=== PATIENT | male | born 2000 | race American Indian/Alaskan Native ===

== ENCOUNTER 2020-02-19 10:25 | Emergency (ER) | payer SELFPAY ==
[2020-02-19 10:31] VITALS: BP 137/69
--- NOTE | 2020-02-19 11:01 | XRay Report ---
XR ankle 3+V LT INDICATION / CLINICAL INFORMATION: PAIN AND SWELLING. COMPARISON: None available. FINDINGS: No acute fracture. No cortical lysis. Normal osseous mineralization. Normal alignment. Joint spaces are preserved. No destructive osseous lesion or suspicious periosteal reaction. Impression: 1.No significant osseous abnormality. Signer Name: Samuel Nevarez MD Signed: 02/19/2020 10:57 AM Workstation Name: [id number]
--- NOTE | 2020-02-19 12:02 | Emergency Department Report ---
ED Lower Extremity HPI - General Chief Complaint: Extremity Injury, Lower Stated Complaint: LT TWISTED ANKLE Time Seen by Provider: 02/19/20 11:54 Source: patient Mode of arrival: Ambulatory Limitations: No Limitations - History of Present Illness Complaint: ankle injury -: Sudden, days(s) (1) Injury: Ankle: Left Type of Injury: inversion Severity: mild, moderate Improves With: nothing Context: other (missed stepped) Associated Symptoms: swelling, unable to bear weight - Related Data Previous Rx's Medication Instructions Recorded Last Taken Type Ketorolac [Toradol] 10 mg PO Q6H PRN #10 tablet 02/19/20 Unknown Rx Allergies Allergy/AdvReac Type Severity Reaction Status Date / Time No Known Allergies Allergy Unverified 02/19/20 10:28 ED Review of Systems ROS: Stated complaint: LT TWISTED ANKLE Other details as noted in HPI Comment: All other systems reviewed and negative ED Past Medical Hx - Past Medical History Previous Medical History?: No - Surgical History Hx Appendectomy: Yes - Social History Smoking Status: Never Smoker Substance Use Type: None - Medications Home Medications: Home Medications Medication Instructions Recorded Confirmed Last Taken Type Ketorolac [Toradol] 10 mg PO Q6H PRN #10 tablet 02/19/20 Unknown Rx ED Physical Exam - General Limitations: No Limitations General appearance: alert, in no apparent distress - Head Head exam: Present: atraumatic, normocephalic - Eye Eye exam: Present: normal appearance, PERRL Pupils: Present: normal accommodation - ENT ENT exam: Present: normal exam, mucous membranes moist, TM's normal bilaterally - Neck Neck exam: Present: normal inspection, full ROM - Respiratory Respiratory exam: Present: normal lung sounds bilaterally, rales, rhonchi. Absent: respiratory distress - Cardiovascular Cardiovascular Exam: Present: regular rate, normal rhythm. Absent: systolic murmur, diastolic murmur, rubs, gallop - GI/Abdominal GI/Abdominal exam: Present: soft, normal bowel sounds - Rectal Rectal exam: Present: deferred - Extremities Exam Extremities exam: Present: normal inspection, joint swelling (swelling to lateral malleous and 3 inches above lateral malleous. no pain to proximal fibula. ), calf tenderness - Back Exam Back exam: Present: normal inspection. Absent: CVA tenderness (R), CVA tenderness (L) - Neurological Exam Neurological exam: Present: alert, oriented X3, CN II-XII intact, normal gait - Psychiatric Psychiatric exam: Present: normal affect, normal mood - Skin Skin exam: Present: warm, dry, intact, normal color. Absent: rash ED Course Vital Signs 02/19/20 10:31 Temperature 98.1 F Pulse Rate 54 L Respiratory 16 Rate Blood Pressure 137/69 O2 Sat by Pulse 100 Oximetry - Orthopedic Splinting/Casting Injury #1 Side: left Lower Extremity Injury Location: ankle Lower Extremity Immobilizer: stirrup splint Other Orthopedic Equipment: crutches Critical care attestation.: If time is entered above; I have spent that time in minutes in the direct care of this critically ill patient, excluding procedure time. ED Disposition Clinical Impression: Left ankle sprain Disposition: - TO HOME OR SELFCARE Is pt being admited?: No Does the pt Need Aspirin: No Condition: Stable Instructions: How to Use a Stirrup Ankle Brace, [id number], Ankle Sprain, Phase II Rehab-SportsMed, How to Use a Stirrup Ankle Brace, Elastic Bandage and RICE Therapy Prescriptions: Ketorolac [Toradol] 10 mg PO Q6H PRN #10 tablet PRN Reason: Pain Referrals: PRIMARY CAREMD [Primary Care Provider] - 3-5 Days SALOMÓN GRIFFITH MD [Staff Physician] - 3-5 Days
== END 2020-02-19 15:01 | disposition home or self-care (01) ==
LOC: ED 10:25
DX: S93.402A Sprain of unspecified ligament of left ankle, initial encounter (principal); Z90.49 Acquired absence of other specified parts of digestive tract; Z79.899 Other long term (current) drug therapy; X58.XXXA Exposure to other specified factors, initial encounter; Y93.89 Activity, other specified; Y92.89 Other specified places as the place of occurrence of the external cause; Y99.8 Other external cause status

== ENCOUNTER 2021-05-14 12:40 | Emergency (ER) | payer SELFPAY ==
[2021-05-14 13:15] VITALS: BP 153/102
== END 2021-05-14 18:08 | disposition left against medical advice (07) ==
LOC: ED 12:40
DX: R31.9 Hematuria, unspecified (principal); Z53.21 Procedure and treatment not carried out due to patient leaving prior to being seen by health care provider

== ENCOUNTER 2021-06-17 12:23 | Emergency (ER) | payer SELFPAY ==
[2021-06-17 15:12] LABS: Basophils # (Auto) 0.1 K/mm3 (0.0-0.1); Basophils % (Auto) 2.3 % (0.0-1.8); Eosinophils # (Auto) 0.2 K/mm3 (0.0-0.4); Eosinophils % (Auto) 4.3 % (0.0-4.3); Hematocrit 40.9 % (35.5-45.6); Hemoglobin 13.7 gm/dl (11.8-15.2); Lymphocytes # (Auto) 2.4 K/mm3 (1.2-5.4); Lymphocytes % (Auto) 47.5 % (13.4-35.0); Mean Corpuscular HGB Conc 34 % (32-34); Mean Corpuscular Volume 92 fl (84-94); Monocytes # (Auto) 0.5 K/mm3 (0.0-0.8); Monocytes % (Auto) 10.1 % (0.0-7.3); Platelet Count 212 K/mm3 (140-440); Red Blood Count 4.44 M/mm3 (3.65-5.03); Red Cell Distribution Width 12.9 % (13.2-15.2)
[2021-06-17 15:23] LABS: Alanine Aminotransferase 10 units/L (7-56); Albumin 4.4 g/dL (3.9-5); BUN/Creatinine Ratio 10; Blood Urea Nitrogen 11 mg/dL (9-20); Calcium 8.9 mg/dL (8.4-10.2); Hemolysis Index 12
[2021-06-17 16:03] LABS: Bilirubin,Urine NEG (Negative); Blood,Urine NEG (Negative); Color,Urine Yellow (Yellow); Protein,Urine <15 mg/dL mg/dL (Negative); Renal Epithelial Cells,Urine <1 /LPF; Urobilinogen,Urine < 2.0 mg/dL (<2.0)
--- NOTE | 2021-06-17 16:51 | Cat Scan Report ---
CT abdomen pelvis wo con INDICATION: Flank pain, low back pain. COMPARISON: None TECHNIQUE: Abdominal and pelvic CT exam performed. All CT scans at this location are performed using CT dose reduction for ALARA by means of automated exposure control. FINDINGS: CT ABDOMEN and PELVIS: Lung Bases: No significant abnormality. Liver: No significant abnormality. Biliary: No significant abnormality. Spleen: No significant abnormality. Pancreas: No significant abnormality. Adrenals: No significant abnormality. Kidneys: Punctate nonobstructing left midpole stone, image 56 of series 2 Lymphatics: No lymphadenopathy. Vasculature: No significant abnormality. Bowel: No significant abnormality. Appendix is nonvisualized. However, no inflammatory changes in th e right lower quadrant to suggest appendicitis. Pelvis: No significant abnormality. Osseous Structures: No aggressive osseous lesion. Additional Findings: None IMPRESSION: 1. No acute abnormality of the abdomen or pelvis. 2. Punctate nonobstructing left midpole renal stone. Signer Name: Samuel Nevarez MD Signed: 06/17/2021 4:47 PM Workstation Name: [id number]
[2021-06-17] MEDS ORDERED: KETOROLAC 30 MG/1 ML INJ IM ONE (17:18)
[2021-06-17] MEDS ORDERED: TAMSULOSIN 0.4 MG CAP PO ONE (17:18)
--- NOTE | 2021-06-17 18:45 | Emergency Department Report ---
ED General Adult HPI - General Chief complaint: Urogenital-Male Stated complaint: BLOODY URINE Source: patient Mode of arrival: Ambulatory Limitations: No Limitations - History of Present Illness Initial comments: Patient is a 21-year-old -[place] male with no past medical history presents to the ED with complaint of acute onset persistent intermittent hematuria, dysuria, suprapubic pain, bilateral flank pain and low back pain for the last 1 week. Patient states that the pain is persistent and worse this patient in the last 2 days. Patient states that the last time he experienced hematuria was about 8 hours ago. Patient denies penile discharge, testicular pain, fever, chills, dizziness, syncope, urinary frequency and urgency, nausea and vomiting, diarrhea, traumatic injury, headache, chest pain or shortness of breath. MD Complaint: Hematuria, suprapubic pain, flank pain, -: Sudden, week(s) (1) Location: back (Low back), abdomen, genitals Radiation: non-radiation Severity scale (0 -10): 4 Quality: aching, sharp Consistency: intermittent Improves with: none Worsens with: other (Urination) Associated Symptoms: denies other symptoms. denies: confusion, cough, diaphoresis, headaches, malaise, nausea/vomiting, rash, seizure, shortness of breath, syncope, weakness Treatments Prior to Arrival: none - Related Data Previous Rx's Medication Instructions Recorded Last Taken Type Ketorolac [Toradol] 10 mg PO Q6H PRN #10 tablet 02/19/20 Unknown Rx Ciprofloxacin HCl 500 mg PO Q12H #20 tab 06/17/21 Unknown Rx Ketorolac [Toradol] 10 mg PO Q8H PRN #20 tab 06/17/21 Unknown Rx Ondansetron [Zofran Odt] 4 mg PO Q8HR PRN #15 tab.rapdis 06/17/21 Unknown Rx Tamsulosin [Flomax] 0.4 mg PO QDAY #10 cap 06/17/21 Unknown Rx Allergies Allergy/AdvReac Type Severity Reaction Status Date / Time No Known Allergies Allergy Verified 06/17/21 12:34 ED Review of Systems ROS: Stated complaint: BLOODY URINE Other details as noted in HPI Constitutional: denies: chills, fever Eyes: denies: eye pain, eye discharge, vision change ENT: denies: ear pain, throat pain Respiratory: denies: cough, shortness of breath, wheezing Cardiovascular: denies: chest pain, palpitations Endocrine: no symptoms reported Gastrointestinal: abdominal pain (Suprapubic pain and flank pain). denies: nausea, diarrhea Genitourinary: hematuria. denies: urgency, dysuria, frequency, discharge, testicular pain, testicular mass Musculoskeletal: back pain (Low back pain). denies: joint swelling, arthralgia Skin: denies: rash, lesions Neurological: denies: headache, weakness, paresthesias Psychiatric: denies: anxiety, depression Hematological/Lymphatic: denies: easy bleeding, easy bruising ED Past Medical Hx - Past Medical History Previous Medical History?: No - Surgical History Past Surgical History?: No Hx Appendectomy: Yes - Social History Smoking Status: Former Smoker Substance Use Type: None - Medications Home Medications: Home Medications Medication Instructions Recorded Confirmed Last Taken Type Ketorolac [Toradol] 10 mg PO Q6H PRN #10 tablet 02/19/20 Unknown Rx Ciprofloxacin HCl 500 mg PO Q12H #20 tab 06/17/21 Unknown Rx Ketorolac [Toradol] 10 mg PO Q8H PRN #20 tab 06/17/21 Unknown Rx Ondansetron [Zofran Odt] 4 mg PO Q8HR PRN #15 tab.rapdis 06/17/21 Unknown Rx Tamsulosin [Flomax] 0.4 mg PO QDAY #10 cap 06/17/21 Unknown Rx ED Physical Exam - General Limitations: No Limitations General appearance: alert, in no apparent distress - Head Head exam: Present: atraumatic, normocephalic, normal inspection - Eye Eye exam: Present: normal appearance, PERRL, EOMI Pupils: Present: normal accommodation - ENT ENT exam: Present: normal exam, normal orophraynx, mucous membranes moist, TM's normal bilaterally, normal external ear exam - Neck Neck exam: Present: normal inspection, full ROM. Absent: tenderness - Respiratory Respiratory exam: Present: normal lung sounds bilaterally. Absent: respiratory distress, wheezes, rales, rhonchi, stridor, chest wall tenderness, accessory muscle use, decreased breath sounds, prolonged expiratory - Cardiovascular Cardiovascular Exam: Present: regular rate, normal rhythm, normal heart sounds. Absent: systolic murmur, diastolic murmur, rubs, gallop - GI/Abdominal GI/Abdominal exam: Present: soft, normal bowel sounds. Absent: tenderness, guarding, rebound, hyperactive bowel sounds, hypoactive bowel sounds, organomegaly - Extremities Exam Extremities exam: Present: normal inspection, full ROM, normal capillary refill. Absent: tenderness - Back Exam Back exam: Present: normal inspection, full ROM. Absent: tenderness, CVA tenderness (R), CVA tenderness (L), muscle spasm, paraspinal tenderness, vertebral tenderness - Neurological Exam Neurological exam: Present: alert, oriented X3, CN II-XII intact, normal gait, reflexes normal - Psychiatric Psychiatric exam: Present: normal affect, normal mood - Skin Skin exam: Present: warm, dry, intact, normal color. Absent: rash ED Course Vital Signs 06/17/21 12:35 Temperature 97.6 F Pulse Rate 58 L Respiratory 16 Rate Blood Pressure 122/42 [Left] O2 Sat by Pulse 98 Oximetry ED Medical Decision Making - Lab Data Result diagrams: 06/17/21 14:46 06/17/21 14:46 - Radiology Data Radiology results: report reviewed, [place] [address] Cat Scan Report Signed Patient: ROSALIA NUÑEZ MR#: [id number] : 2000 Acct:[id number] Age/Sex: 21 / M ADM Date: 06/17/21 Loc: ED Attending Dr: Ordering Physician: OSKAR COLEMAN Date of Service: 06/17/21 Procedure(s): CT abdomen pelvis wo con Accession Number(s): [id number] cc: OSKAR COLEMAN CT abdomen pelvis wo con INDICATION: Flank pain, low back pain. COMPARISON: None TECHNIQUE: Abdominal and pelvic CT exam performed. All CT scans at this location are performed using CT dose reduction for ALARA by means of automated exposure control. FINDINGS: CT ABDOMEN and PELVIS: Lung Bases: No significant abnormality. Liver: No significant abnormality. Biliary: No significant abnormality. Spleen: No significant abnormality. Pancreas: No significant abnormality. Adrenals: No significant abnormality. Kidneys: Punctate nonobstructing left midpole stone, image 56 of series 2 Lymphatics: No lymphadenopathy. Vasculature: No significant abnormality. Bowel: No significant abnormality. Appendix is nonvisualized. However, no inflammatory changes in the right lower quadrant to suggest appendicitis. Pelvis: No significant abnormality. Osseous Structures: No aggressive osseous lesion. Additional Findings: None IMPRESSION: 1. No acute abnormality of the abdomen or pelvis. 2. Punctate nonobstructing left midpole renal stone. Signer Name: Samuel Nevarez MD Signed: 06/17/2021 4:47 PM Workstation Name: [id number] Transcribed By: GENA Dictated By: Samuel Nevarez MD Electronically Authenticated By: Samuel Nevarez MD Signed Date/Time: 06/17/211646 DD/ 41 TD/TT: - Medical Decision Making This is a 21-year-old -[place] male with no past medical history presents to the ED with complaint of acute onset persistent intermittent hematuria, dysuria, suprapubic pain, bilateral flank pain and low back pain for the last 1 week. Patient states that the pain is persistent and worse this patient in the last 2 days. Patient states that the last time he experienced hematuria was about 8 hours ago. In the ED, patient is alert and oriented x3 and is not in any distress. Lab test results were reviewed and are all nonactionable except for mild urinary tract infection. Abdomen pelvis CT scan without contrast showed no acute abnormality of the abdomen or pelvis except punctate nonobstructing left midpole renal stone. Patient was treated for pain in the ED and discharged home on pain medication and antibiotics as well as Flomax. Patient was advised to follow-up with the urologist Dr. Goerge in 5 to 7 days for reevaluation. Patient was otherwise advised to follow-up with his primary care physician in 7 to 10 days for reevaluation. Patient was also advised return to the ED immediately if symptoms get worse. - Differential Diagnosis Kidney stone; UTI; colitis; STD; muscle spasm; cystitis Critical care attestation.: If time is entered above; I have spent that time in minutes in the direct care of this critically ill patient, excluding procedure time. ED Disposition Clinical Impression: Acute abdominal pain in left flank, Calculus of left kidney, Acute urinary tract infection Hematuria Qualifiers: Hematuria type: unspecified type Qualified Code(s): R31.9 - Hematuria, unspecified Disposition: 01 HOME / SELF CARE / HOMELESS Is pt being admited?: No Does the pt Need Aspirin: No Condition: Stable Instructions: Kidney Stones, [id number], Renal Colic, [id number], Flank Pain, Adult, [id number], Urinary Tract Infection, Adult, [id number] Additional Instructions: All lab test results are reviewed and are all nonactionable except for urinary tract infection in the urinalysis. The abdomen pelvis CT scan without contrast showed kidney stone in the left kidney. This is likely the reason why you are having gross hematuria. Therefore take medications with food, drink plenty of fluids and follow-up with the Urologist Dr. George in 3 to 5 days for reevaluation. Otherwise follow-up with your primary care physician in 7 to 10 days for reevaluation. Return to the ED immediately if symptoms get worse. Prescriptions: Ciprofloxacin HCl 500 mg PO Q12H #20 tab Tamsulosin [Flomax] 0.4 mg PO QDAY #10 cap Ketorolac [Toradol] 10 mg PO Q8H PRN #20 tab PRN Reason: Pain Ondansetron [Zofran Odt] 4 mg PO Q8HR PRN #15 tab.rapdis PRN Reason: Nausea Referrals: JORDEN GEORGE MD [Staff Physician] - 3-5 Days DIMITRI SHELDON MD [Primary Care Provider] - 7-10 days Forms: Work/School Release Form(ED) Time of Disposition: 18:47 Print Language: ESTONIAN
[2021-06-17 19:53] VITALS: BP 119/76
== END 2021-06-17 18:47 | disposition home or self-care (01) ==
LOC: ED 12:23
DX: N39.0 Urinary tract infection, site not specified (principal); N20.0 Calculus of kidney; R31.9 Hematuria, unspecified; Z87.891 Personal history of nicotine dependence; Z90.49 Acquired absence of other specified parts of digestive tract; Z79.899 Other long term (current) drug therapy
CPT/HCPCS: 36415; 74176; 80053; 81001; 85025; 87086; 96372; 99284; J1885